=== PATIENT | female | born 1955 | race Caucasian/White ===

== ENCOUNTER → 2024-06-09 12:29 | Outpatient (REF) | payer MEDICARE, BC, SELFPAY | LOC: WDC 12:29 | PROVIDERS: ATTENDING PHYSICIAN Emergency Medicine | DX: Z12.31 Encounter for screening mammogram for malignant neoplasm of breast (principal) | CPT/HCPCS: 77063; 77067 ==

== ENCOUNTER → 2025-01-13 09:24 | Outpatient (REF) | payer MEDICARE, BC, SELFPAY | LOC: RCS 09:24 | PROVIDERS: ATTENDING PHYSICIAN Internal Medicine Cardiovascular Disease; FAMILY PHYSICIAN Family Medicine | DX: R06.09 Other forms of dyspnea (principal) | CPT/HCPCS: 93306 ==